=== PATIENT | female | born 1960 | race African-American/Black ===

== ENCOUNTER 2024-02-22 12:11 | Emergency (ER) | payer MEDICARE, MEDICAID ==
[~2024-02-22] VITALS: Ht 165.1 cm; Wt 65.0 kg
[2024-02-22 12:14] VITALS: O2SAT 98
[2024-02-22 13:05] LABS: BASOPHILS % 0.6 % (0.0-2.0); HEMATOCRIT. 41.6 % (36.0-48.0); HEMOGLOBIN. 13.9 g/dL (12.0-16.0); LYMPHOCYTES % 20.5 % (20.0-50.0); MEAN CORPUSCULAR HEMOGLOBIN 30.2 pg (28.0-32.0); MEAN CORPUSCULAR HGB CONC 33.4 g/dL (31.0-37.0); MEAN CORPUSCULAR VOLUME 90.3 fL (81.0-99.0); MONOCYTES % 8.4 % (2.0-8.0); NEUTROPHILS % 69.5 % (40.0-76.0); PLATELET 225 x1000/uL (130-400); RED BLOOD CELL COUNT 4.61 mill/uL (4.2-5.4); RED CELL DISTRIBUTION WIDTH 14.8 % (11.6-14.6); WHITE BLOOD COUNT 4.9 x1000/uL (4.5-11.0)
[2024-02-22 13:07] LABS: CHLORIDE 111 mEq/L (98-107); POTASSIUM 4.4 mEq/L (3.5-5.1); SODIUM 141 mEq/L (136-145)
[2024-02-22 13:08] LABS: CARBON DIOXIDE 27 mEq/L (21-32)
[2024-02-22 13:13] LABS: CREATININE 0.9 mg/dL (0.6-1.0); GLUCOSE 100 mg/dL (70-105)
[2024-02-22 13:14] LABS: UREA NITROGEN BLOOD 16 mg/dL (9-23)
[2024-02-22 13:15] LABS: TROPONIN I HIGH SENSITIVITY 4 ng/L (3.0-34)
[2024-02-22] MEDS: ASPIRIN 81MG EC TABLET PO NR (13:36)
[2024-02-22] MEDS ORDERED: IBUPROFEN 600MG TABLET PO ONE (15:30)
[2024-02-22 15:34] VITALS: BP 135/75; PULSE 63; RESP 16; TEMP 36.94740; O2SAT 98
== END 2024-02-22 15:35 | disposition home or self-care (01) ==
LOC: ER 12:11
DX: R07.89 Other chest pain (principal); I10 Essential (primary) hypertension
CPT/HCPCS: 36415; 71045; 80048; 83880; 84484; 85025; 93005; 99285